=== PATIENT | female | born 1950 | race Caucasian/White ===

== ENCOUNTER 2019-10-18 13:51 | Emergency (ER) | payer MEDICARE, BC ==
[2019-10-18 14:09] VITALS: BP 120/82; PULSE 87
[2019-10-18] MEDS ORDERED: Sodium Chloride 0.9% 10 ML Syringe FLUSH PRN (14:33)
[2019-10-18] MEDS ORDERED: Albuterol/Ipratropium 3.0-0.5 MG/3 ML Neb Soln NEB ONE (14:34)
[2019-10-18] MEDS ORDERED: methylPREDNISolone Sodium Succinate 125 MG/2 ML SDV IVPUSH ONE (14:34)
--- NOTE | 2019-10-18 15:51 | EDM.PDOC ---
ED HPI GENERAL MEDICAL PROBLEM - General Chief Complaint: Respiratory Problem Stated Complaint: SOB/PNEUMONIA Time Seen by Provider: 10/18/19 14:02 Source of Information: Reports: Patient History Limitations: Reports: No Limitations - History of Present Illness INITIAL COMMENTS - FREE TEXT/NARRATIVE: The patient presents with shortness of breath and a cough. She was seen in the [place] [facility] last week and she was diagnosed with bronchitis and reactive airway disease. She was put on an steroids and antibiotics. She returned to the clinic because she was not much better. She still had the shortness of breath and she is wheezing. This is the time this year this has happened and she went to a patternator and multiple tests were done and nothing was found. She does not smoke. She does not have asthma. She has no fever, or chills. She does have a productive cough at times. She has no chest pain. She has no abdominal pain, nausea or vomiting. Onset: Gradual Duration: Day(s): Severity: Moderate Improves with: Reports: None Worsens with: Reports: None Associated Symptoms: Reports: Cough, Shortness of Breath. Denies: Chest Pain, Fever/Chills, Headaches, Nausea/Vomiting Headache Pain Score (Numeric/FACES): 8 - Related Data Allergies Allergy/AdvReac Type Severity Reaction Status Date / Time cefaclor [From Ceclor] Allergy Other Verified 10/18/19 14:09 Home Meds: Home Meds Cholecalciferol (Vitamin D3) [Vitamin D] 1 tab PO DAILY 10/18/19 [History] Desvenlafaxine Succinate [Pristiq] 50 mg PO DAILY 10/18/19 [History] Escitalopram [Lexapro] 10 mg PO DAILY 10/18/19 [History] Levothyroxine 75 mcg PO DAILY 10/18/19 [History] Olmesartan Medoxomil [Benicar] 20 mg PO DAILY 10/18/19 [History] Pantoprazole [ProTONIX] 20 mg PO DAILY 10/18/19 [History] Rosuvastatin [Crestor] 10 mg PO DAILY 10/18/19 [History] Sennosides [Senokot] 1 tab PO DAILY 10/18/19 [History] lamoTRIgine [Lamotrigine] 62.5 mg PO DAILY 10/18/19 [History] traZODone HCl [Trazodone HCl] 50 mg PO DAILY 10/18/19 [History] Past Medical History HEENT History: Reports: Impaired Vision Cardiovascular History: Reports: Congenital Septal Defect, Hypertension, [place] Respiratory History: Reports: Bronchitis, Recurrent, Pneumonia, Recurrent [employer] WORK[employer] History: Reports: Endocrine/Metabolic History: Reports: Hypothyroidism - Past Surgical History HEENT Surgical History: Reports: Tonsillectomy GI Surgical History: Reports: Cholecystectomy Female Surgical History: Reports: Hysterectomy Social & Family History - Family History Family Medical History: Noncontributory - Tobacco Use Smoking Status *Q: Former Smoker Used Tobacco, but Quit: Yes Month/Year Tobacco Last Used: 09/1989 - Caffeine Use Caffeine Use: Reports: Soda - Recreational Drug Use Recreational Drug Use: No ED ROS GENERAL - Review of Systems Review Of Systems: See Below Constitutional: Reports: No Symptoms HEENT: Reports: No Symptoms Respiratory: Reports: Shortness of Breath, Cough Cardiovascular: Reports: No Symptoms Endocrine: Reports: No Symptoms GI/Abdominal: Reports: No Symptoms : Reports: No Symptoms Musculoskeletal: Reports: No Symptoms Skin: Reports: No Symptoms ED EXAM, GENERAL - Physical Exam Exam: See Below Exam Limited By: No Limitations General Appearance: Alert, No Apparent Distress Ears: Normal External Exam Nose: Normal Inspection Head: Atraumatic, Normocephalic Neck: Normal Inspection, Supple, Non-Tender Respiratory/Chest: No Respiratory Distress, Wheezing (Moderate) Cardiovascular: Regular Rate, Rhythm, No Edema, No Murmur GI/Abdominal: Soft, Non-Tender, No Organomegaly, No Mass Back Exam: Normal Inspection Extremities: Normal Inspection Neurological: Alert, Oriented, No Motor/Sensory Deficits EKG INTERPRETATION EKG Date: 10/18/19 Time: 14:46 Rhythm: NSR Rate (Beats/Min): 84 [place]: Normal P-Wave: Present QRS: Normal ST-T: Normal QT: Normal Course - Vital Signs Last Recorded V/S: Last Vital Signs Temp 97.1 F 10/18/19 14:05 Pulse 87 10/18/19 14:05 Resp 20 10/18/19 14:05 BP 120/82 10/18/19 14:05 Pulse Ox 98 10/18/19 14:43 - Orders/Labs/Meds Orders: Active Orders 24 hr Category Date Time Status Cardiac Monitoring [RC] . DIRECTED Care 10/18/19 14:33 Active EKG Documentation Completion [RC] STAT Care 10/18/19 14:33 Active Peripheral IV Care [RC] . DIRECTED Care 10/18/19 14:34 Active RT Aerosol Therapy [RC] ASDIRECTED Care 10/18/19 14:34 Active CULTURE BLOOD [BC] Stat Lab 10/18/19 17:50 Received CULTURE BLOOD [BC] Stat Lab 10/18/19 18:00 Received Levofloxacin/Dextrose 5%-Water [Levaquin in D5W 750 MG/ Med 10/18/19 17:35 Active 150 ML] 750 mg Premix Bag 1 bag IV ONETIME Sodium Chloride 0.9% [Normal Saline] 1,000 ml Med 10/18/19 16:15 Active IV ASDIRECTED Sodium Chloride 0.9% [Normal Saline] 100 ml Med 10/18/19 16:30 Active IV ASDIRECTED Sodium Chloride 0.9% [Saline Flush] Med 10/18/19 14:33 Active 10 ml FLUSH ASDIRECTED PRN Blood Culture x2 Reflex Set [OM.PC] Stat Oth 10/18/19 17:31 Ordered Peripheral IV Insertion Adult [OM.PC] Stat Oth 10/18/19 14:33 Ordered Medication Orders Sodium Chloride (Normal Saline) 1,000 mls @ 150 mls/hr IV ASDIRECTED [facility] Last Admin: 10/18/19 16:17 Dose: 150 mls/hr Sodium Chloride (Normal Saline) 100 mls @ 60 mls/hr IV ASDIRECTED [facility] Last Admin: 10/18/19 16:35 Dose: 60 mls/hr Levofloxacin/Dextrose 750 mg/ (Premix) 150 mls @ 100 mls/hr IV ONETIME ONE Stop: 10/18/19 19:04 Last Admin: 10/18/19 18:08 Dose: 100 mls/hr Sodium Chloride (Saline Flush) 10 ml FLUSH ASDIRECTED PRN PRN Reason: Keep Vein Open Last Admin: 10/18/19 15:16 Dose: 10 ml Labs: Laboratory Tests 10/18/19 10/18/19 10/18/19 Range/Units 15:15 15:15 15:15 WBC 4.92 (3.98-10.04) K/mm3 RBC 4.33 (3.98-5.22) M/mm3 Hgb 11.9 D (11.2-15.7) gm/dl Hct 37.7 (34.1-44.9) % MCV 87.1 D (79.4-94.8) fl MCH 27.5 (25.6-32.2) pg MCHC 31.6 L (32.2-35.5) g/dl RDW Std Deviation 42.0 (36.4-46.3) fL Plt Count 116 L D (182-369) K/mm3 MPV 10.0 (9.4-12.3) fl Neut % (Auto) 65.4 (34.0-71.1) % Lymph % (Auto) 22.8 (19.3-51.7) % [place] % (Auto) 11.0 (4.7-12.5) % Eos % (Auto) 0 L (0.7-5.8) Baso % (Auto) 0.2 (0.1-1.2) % Neut # (Auto) 3.22 (1.56-6.13) K/mm3 Lymph # (Auto) 1.12 L (1.18-3.74) K/mm3 [place] # (Auto) 0.54 H (0.24-0.36) K/mm3 Eos # (Auto) 0.00 L (0.04-0.36) K/mm3 Baso # (Auto) 0.01 (0.01-0.08) K/mm3 Sodium 142 (136-145) mEq/L Potassium 3.6 (3.5-5.1) mEq/L Chloride 104 (98-107) mEq/L Carbon Dioxide 29 (21-32) mEq/L Anion Gap 12.6 (5-15) BUN 20 H (7-18) mg/dL Creatinine 1.1 H (0.55-1.02) mg/dL Est Cr Clr Drug Dosing 46.28 mL/min Estimated GFR (MDRD) 49 (>60) mL/min BUN/Creatinine Ratio 18.2 H (14-18) Glucose 99 (80-115) mg/dL Lactic Acid (0.4-2.0) mmol/L Calcium 8.7 (8.5-10.1) mg/dL Total Bilirubin 0.4 (0.2-1.0) mg/dL AST 11 L (15-37) U/L ALT 22 (14-59) U/L Alkaline Phosphatase 83 (46-116) U/L Troponin I < 0.017 (0.00-0.056) ng/mL NT-Pro-B Natriuret Pep 2116 H (0-125) pg/mL Total Protein 6.5 (6.4-8.2) g/dl Albumin 3.3 L (3.4-5.0) g/dl Globulin 3.2 gm/dL Albumin/Globulin Ratio 1.0 (1-2) 10/18/19 Range/Units 18:00 WBC (3.98-10.04) K/mm3 RBC (3.98-5.22) M/mm3 Hgb (11.2-15.7) gm/dl Hct (34.1-44.9) % MCV (79.4-94.8) fl MCH (25.6-32.2) pg MCHC (32.2-35.5) g/dl RDW Std Deviation (36.4-46.3) fL Plt Count (182-369) K/mm3 MPV (9.4-12.3) fl Neut % (Auto) (34.0-71.1) % Lymph % (Auto) (19.3-51.7) % [place] % (Auto) (4.7-12.5) % Eos % (Auto) (0.7-5.8) Baso % (Auto) (0.1-1.2) % Neut # (Auto) (1.56-6.13) K/mm3 Lymph # (Auto) (1.18-3.74) K/mm3 [place] # (Auto) (0.24-0.36) K/mm3 Eos # (Auto) (0.04-0.36) K/mm3 Baso # (Auto) (0.01-0.08) K/mm3 Sodium (136-145) mEq/L Potassium (3.5-5.1) mEq/L Chloride (98-107) mEq/L Carbon Dioxide (21-32) mEq/L Anion Gap (5-15) BUN (7-18) mg/dL Creatinine (0.55-1.02) mg/dL Est Cr Clr Drug Dosing mL/min Estimated GFR (MDRD) (>60) mL/min BUN/Creatinine Ratio (14-18) Glucose (80-115) mg/dL Lactic Acid 0.5 (0.4-2.0) mmol/L Calcium (8.5-10.1) mg/dL Total Bilirubin (0.2-1.0) mg/dL AST (15-37) U/L ALT (14-59) U/L Alkaline Phosphatase (46-116) U/L Troponin I (0.00-0.056) ng/mL NT-Pro-B Natriuret Pep (0-125) pg/mL Total Protein (6.4-8.2) g/dl Albumin (3.4-5.0) g/dl Globulin gm/dL Albumin/Globulin Ratio (1-2) Meds: Medications Generic Name Dose Route Start Last Admin Trade Name Freq PRN Reason Stop Dose Admin Sodium Chloride 1,000 mls @ 150 mls/hr 10/18/19 16:15 10/18/19 16:17 Normal Saline IV 150 mls/hr ASDIRECTED SAMY Administration Sodium Chloride 100 mls @ 60 mls/hr 10/18/19 16:30 10/18/19 16:35 Normal Saline IV 60 mls/hr ASDIRECTED SAMY Administration Levofloxacin/Dextrose 750 mg/ 150 mls @ 100 mls/hr 10/18/19 17:35 10/18/19 18 :08 Premix IV 10/18/19 19:04 100 mls/hr ONETIME ONE Administration Sodium Chloride 10 ml 10/18/19 14:33 10/18/19 15:16 Saline Flush FLUSH 10 ml ASDIRECTED PRN Administration Keep Vein Open Discontinued Medications Generic Name Dose Route Start Last Admin Trade Name Freq PRN Reason Stop Dose Admin Albuterol/Ipratropium 3 ml 10/18/19 14:34 10/18/19 14:43 Duoneb 3.0-0.5 Mg/3 Ml NEB 10/18/19 14:35 3 ml ONETIME ONE Administration Iopamidol 100 ml 10/18/19 16:20 10/18/19 16:34 Isovue-370 (76%) IVPUSH 10/18/19 16:21 100 ml ONETIME ONE Administration Methylprednisolone Sodium Succinate 125 mg 10/18/19 14:34 10/18/19 15:16 Solu-Medrol IVPUSH 10/18/19 14:35 125 mg ONETIME ONE Administration Sodium Chloride 10 ml 10/18/19 16:20 10/18/19 16:35 Saline Flush FLUSH 10/18/19 16:21 10 ml ONETIME ONE Administration - Re-Assessments/Exams Free Text/Narrative Re-Assessment/Exam: 10/18/19 15:52 I ordered an IV saline lock, solu-medrol 125mg IV, labs, and duoneb. Her EKG shows a NSR with no acute changes. Her CXR shows possibly a viral bronchitis according to Dr Perea. 10/18/19 18:02 Her CBC looks good. Her creatinine was elevated at 1.1. Her troponin was negative. Her BNP was elevated at 2116. She still had wheezing and her oxygen saturations are 88%. I ordered oxygen and a duoneb. I have also ordered a CT angio of her chest and it shows no findings of pulmonary embolism. Patchy areas of increased density within both lungs suspicious for multifocal pneumonia. Splenomegaly with mild mediastinal adenopathy. Lymphoproliferative malignancy needs to be ruled out. I have ordered blood cultures, lactic acid and levaquin 750mg IV. I feel she needs to be admitted. I called Dr Echeverria and she felt the patient should go down to [place]. This could be lymphoma and we do not have oncology here. 10/18/19 18:53 I called [facility] and talked with Dr Gutierrez and she agreed to the transfer. Departure - Departure Time of Disposition: 18:55 Disposition: DC/Tfer to [facility] 02 Condition: Fair Clinical Impression: Hypoxia, Wheezing Pneumonia Qualifiers: Pneumonia type: due to unspecified organism Laterality: bilateral Lung location : unspecified part of lung Qualified Code(s): J18.9 - Pneumonia, unspecified organism - Discharge Information Referrals: Erika Moffett PA-C [Primary Care Provider] - Forms: ED Department Discharge Sepsis Event Note - Evaluation Sepsis Screening Result: No Definite Risk - Focused Exam Vital Signs: Vital Signs Temp Pulse Resp BP Pulse Ox Pulse Ox 10/18/19 14:43 98 10/18/19 14:05 97.1 F 87 20 120/82 95 Date Exam was Performed: 10/18/19 Time Exam was Performed: 18:52 - My Orders Last 24 Hours: My Active Orders 10/18/19 14:33 Cardiac Monitoring [RC] . DIRECTED EKG Documentation Completion [RC] STAT Sodium Chloride 0.9% [Saline Flush] 10 ml FLUSH ASDIRECTED PRN Peripheral IV Insertion Adult [OM.PC] Stat 10/18/19 14:34 Peripheral IV Care [RC] . DIRECTED RT Aerosol Therapy [RC] ASDIRECTED 10/18/19 16:15 Sodium Chloride 0.9% [Normal Saline] 1,000 ml IV ASDIRECTED 10/18/19 16:30 Sodium Chloride 0.9% [Normal Saline] 100 ml IV ASDIRECTED 10/18/19 17:31 Blood Culture x2 Reflex Set [OM.PC] Stat 10/18/19 17:35 Levofloxacin/Dextrose 5%-Water [Levaquin in D5W 750 MG/150 ML] 750 mg Premix Bag 1 bag IV ONETIME 10/18/19 17:50 CULTURE BLOOD [BC] Stat 10/18/19 18:00 CULTURE BLOOD [BC] Stat - Assessment/Plan Last 24 Hours: My Active Orders 10/18/19 14:33 Cardiac Monitoring [RC] . DIRECTED EKG Documentation Completion [RC] STAT Sodium Chloride 0.9% [Saline Flush] 10 ml FLUSH ASDIRECTED PRN Peripheral IV Insertion Adult [OM.PC] Stat 10/18/19 14:34 Peripheral IV Care [RC] . DIRECTED RT Aerosol Therapy [RC] ASDIRECTED 10/18/19 16:15 Sodium Chloride 0.9% [Normal Saline] 1,000 ml IV ASDIRECTED 10/18/19 16:30 Sodium Chloride 0.9% [Normal Saline] 100 ml IV ASDIRECTED 10/18/19 17:31 Blood Culture x2 Reflex Set [OM.PC] Stat 10/18/19 17:35 Levofloxacin/Dextrose 5%-Water [Levaquin in D5W 750 MG/150 ML] 750 mg Premix Bag 1 bag IV ONETIME 10/18/19 17:50 CULTURE BLOOD [BC] Stat 10/18/19 18:00 CULTURE BLOOD [BC] Stat
[2019-10-18] MEDS ORDERED: Sodium Chloride 0.9% 1,000 ML IV SCH (16:15)
[2019-10-18] MEDS ORDERED: Sodium Chloride 0.9% 10 ML Syringe FLUSH ONE (16:20)
[2019-10-18] MEDS ORDERED: Iopamidol 755 Mg/ML 100 ML Bottle IVPUSH ONE (16:20)
[2019-10-18] MEDS ORDERED: Sodium Chloride 0.9% 100 ML IV SCH (16:30)
--- NOTE | 2019-10-18 17:10 | CT ---
CT chest Technique: Multiple axial sections through the chest were obtained. Intravenous contrast was utilized. Study has been performed as a pulmonary angiogram protocol. Comparison: Previous chest x-ray performed on the same day Visualized upper abdominal structures shows prior cholecystectomy. Spleen appears to be slightly enlarged measuring between 13-15 cm. Spleen is incompletely included on this exam. Several enlarged lymph nodes are seen within the mediastinum which are abnormal. No pericardial thickening is seen. Pulmonary arteries are well opacified. No filling defects are seen to indicate pulmonary embolism. Hazy areas of increased density are seen throughout both lungs. These findings are suspicious for multifocal pneumonia. Bone window settings were reviewed which shows no acute osseous finding. Mild degenerative change is noted within the spine. Impression: 1. No findings of pulmonary embolism. 2. Patchy areas of increased density within both lungs suspicious for multifocal pneumonia. 3. Splenomegaly with mild mediastinal adenopathy. Lymphoproliferative malignancy needs to be ruled out. Diagnostic code #9 This report was dictated in [place] Standard Time
[2019-10-18] MEDS ORDERED: Levofloxacin/Dextrose 5%-Water 750 MG in Premix Bag 1 BAG IV ONE (17:35)
== END 2019-10-18 19:25 ==
LOC: JD.ED 13:51
DX: J18.9 Pneumonia, unspecified organism (principal); R09.02 Hypoxemia; I10 Essential (primary) hypertension; I25.2 Old myocardial infarction; E03.9 Hypothyroidism, unspecified; Z88.1 Allergy status to other antibiotic agents; Z79.899 Other long term (current) drug therapy; Z87.891 Personal history of nicotine dependence
CPT/HCPCS: 36415; 71275; 80053; 83605; 83880; 84484; 85025; 87040; 93005; 94640; 96361; 96365; 96375; 99285; J1956; J2930; J7030; J7050; Q9967; 93010; J7620-GY

== ENCOUNTER 2022-04-08 08:30 | Day surgery (SDC) | payer MEDICARE, BC ==
[~2022-04-08 08:30] MED LIST: Acetaminophen 325 MG Tab PO SCH; Lactated Ringers 1,000 ML IV SCH; Lidocaine 1%/Sod Bicarbonate in NS 8.4% 1 ML Syringe IDERM PRN; Morphine 8 MG, EPINEPHrine 0.3 MG, Ketorolac 30 MG, Sodium Chloride 0.9% 17.9 ML PRN; Pregabalin 25 MG Cap PO SCH; Sodium Chloride 0.9% 10 ML Syringe FLUSH PRN; Sodium Chloride 0.9% 10 ML Syringe FLUSH SCH; oxyCODONE ER 10 MG TAB.ER PO SCH
[2022-04-08] MEDS ORDERED: Vancomycin 1 GM SDV ONE ×2 (09:28→11:36)
[2022-04-08] MEDS ORDERED: Albuterol 0.083% 2.5 MG/3 ML Neb Soln NEB ONE (10:34)
[2022-04-08] MEDS ORDERED: Propofol 200 MG/20 ML SDV ONE ×2 (10:39→10:40)
[2022-04-08] MEDS ORDERED: fentaNYL 100 MCG/2 ML SDV ONE (10:39)
[2022-04-08] MEDS ORDERED: ceFAZolin 2 GM Vial ONE (10:39)
[2022-04-08] MEDS ORDERED: Midazolam 1 MG/ML 2 ML SDV ONE (10:40)
[2022-04-08] MEDS ORDERED: Lactated Ringers 1,000 ML ONE ×2 (10:41→13:13)
[2022-04-08] MEDS ORDERED: Ropivacaine 0.5% 5 MG/ML 30 ML SDV ONE (10:43)
[2022-04-08] MEDS ORDERED: EPINEPHrine 1 MG/ML SDV ONE (10:43)
[2022-04-08] MEDS ORDERED: Ondansetron 4 MG/2 ML SDV ONE (12:25)
[2022-04-08] MEDS ORDERED: HYDROmorphone 0.5 MG/0.5 ML Syringe IVPUSH PRN (12:35)
[2022-04-08] MEDS ORDERED: fentaNYL 100 MCG/2 ML SDV IVPUSH PRN (12:35)
[2022-04-08] MEDS ORDERED: Ondansetron 4 MG/2 ML SDV IVPUSH PRN (12:35)
[2022-04-08] MEDS ORDERED: ePHEDrine 50 MG/ML SDV ONE (12:45)
[2022-04-08] MEDS ORDERED: oxyCODONE 5 MG Tab PO PRN (13:55)
[2022-04-08 17:23] VITALS: BP 115/95; PULSE 88
== END 2022-04-08 17:55 | disposition home or self-care (01) ==
LOC: JD.SDS 08:30
PROVIDERS: ATTEND Orthopaedic Surgery
DX: M17.12 Unilateral primary osteoarthritis, left knee (principal); J45.909 Unspecified asthma, uncomplicated; K21.9 Gastro-esophageal reflux disease without esophagitis; F32.A Depression, unspecified; Z01.812 Encounter for preprocedural laboratory examination; Z79.899 Other long term (current) drug therapy; Z20.822 Contact with and (suspected) exposure to COVID-19
CPT/HCPCS: 0055T; 27447; 73560; 97110; 97161; A9270; C1713; C1776; J0171; J0690; J1885; J2250; J2270; J2405; J2704; J2795; J3010; J3370; J7120; U0002; 01402; 64450